=== PATIENT | male | born 2005 | race Two or more races ===

== ENCOUNTER 2024-09-30 03:35 | Emergency (ER) | payer MEDICAID, SELFPAY ==
[2024-09-30 03:36] VITALS: BMI 25.8
[2024-09-30 04:14] VITALS: BP 122/73; PULSE 89; RESP 18; TEMP 36.7; O2SAT 98
--- NOTE | 2024-09-30 04:19 | PD.EDRME ---
Rapid Medical Screening Exam RME Arrival date/time: 09/30/24 03:35 19-year-old male presents emergency department complaining of rectal bleeding and diffuse abdominal pain for several days. Chief Complaint: Abdominal Pain Time Seen by Provider: 09/30/24 04:16 Vital signs: Vital Signs Temperature 98.0 F 09/30/24 04:14 Pulse Rate 89 09/30/24 04:14 Respiratory Rate 18 09/30/24 04:14 Blood Pressure 122/73 09/30/24 04:14 Pulse Oximetry (%) 98 09/30/24 04:14 Oxygen Delivery Method Room Air 09/30/24 04:14 Vital signs reviewed by provider: Yes
[2024-09-30 05:27] LABS: Collection Type, Urine Clean Catch; Squamous Epithelial Cell,Urine 0 /hpf (0-5); WBC,Urine 0 /hpf (0-5)
[2024-09-30 06:09] LABS: Bilirubin,Urine Negative (Negative); Blood,Urine Negative (Negative); Clarity,Urine Clear (Clear/Hazy); Color,Urine Colorless (Lt Yel-Yel); Culture Indicated,Urine Not Indicated; Glucose, Urine Negative (Negative); Ketones,Urine Negative (Negative); Leukocyte Esterase,Urine Negative (Negative); Nitrite,Urine Negative (Negative); PH,Urine 6.5 (5.0-7.0); Protein,Urine Negative (Neg - Trace); RBC,Urine 1 /hpf (0-3); Specific Gravity,Urine 1.012 (1.001-1.035); Urobilinogen,Urine Negative mg/dL (0.0-1.0)
--- NOTE | 2024-09-30 06:36 | PD.EDABDPN ---
ED Abdominal Pain RME/HPI General Chief Complaint: Abdominal Pain Stated complaint: BLOOD IN STOOL/ABD PAIN X 1 DAY Time seen by provider: 09/30/24 04:16 Arrival date/time: 09/30/24 03:35 19-year-old male with no known medical history presents to the emergency room with a chief complaint of generalized abdominal 7 out of 10 pain and rectal bleeding x 2 days. Source: patient Mode of arrival: ambulatory Limitations: no limitations RME / HPI RME / HPI narrative: 09/30/24 03:35 19-year-old male presents emergency department complaining of rectal bleeding and diffuse abdominal pain for several days. Related Data Previous Rx's ?Medication ?Instructions ?Recorded albuterol sulfate 90 mcg/actuation 2 puff inhalation Q4HR PRN dyspnea 01/21/17 aerosol inhaler (ProAir HFA) #2 inhalations docusate sodium 100 mg capsule 100 mg PO BID #14 caps 09/30/24 (Colace) hydrocortisone acetate 25 mg 25 mg [place] BID #12 ea 09/30/24 rectal suppository (Anusol-HC) Allergies Allergy/AdvReac Type Severity Reaction Status Date / Time No Known Allergies Allergy Verified 09/30/24 03:38 Review of Systems Review of Systems Systems Reviewed: All systems reviewed, normal except as documented Constitutional Constitutional: Reports system reviewed and no additional complaints, except as documented, Denies fatigue, Denies fever(s), Denies headache(s) and Denies weakness Eyes Eyes: Reports system reviewed and no additional complaints, except as documented, Denies blurry vision and Denies change in vision ENT Ears, Nose, Mouth, and Throat: Reports system reviewed and no additional complaints, except as documented, Denies otalgia, Denies headache(s), Denies nasal congestion, Denies throat swelling and Denies vertigo Cardiovascular Cardiovascular: Reports system reviewed and no additional complaints, except as documented, Denies chest pain, Denies dyspnea and Denies dyspnea on exertion Respiratory Respiratory: Reports system reviewed and no additional complaints, except as documented, Denies chest congestion, Denies cough, Denies dyspnea, Denies dyspnea on exertion and Denies wheezing Gastrointestinal Gastrointestinal: Reports system reviewed and no additional complaints, except as documented, Denies abdominal pain, Reports bloating, Reports change in bowel habits, Reports change in stool character, Reports constipation, Reports cramping, Reports hematochezia, Reports loose stools, Denies nausea and Denies vomiting Genitourinary Genitourinary: Reports system reviewed and no additional complaints, except as documented, Denies dysuria and Denies hematuria Musculoskeletal Musculoskeletal: Reports system reviewed and no additional complaints, except as documented and Denies back pain Integumentary/Breasts Skin/Breast: Reports system reviewed and no additional complaints, except as documented and Denies wounds Neurologic Neurologic: Reports system reviewed and no additional complaints, except as documented, Denies confusion, Denies headache(s), Denies lack of coordination, Denies vertigo and Denies weakness Psychiatric Psychiatric: Reports system reviewed and no additional complaints, except as documented, Denies anxiety, Denies confusion, Denies depression, Denies paranoia, Denies suicidal ideation and Denies tactile hallucinations Endocrine Endocrine: Reports system reviewed and no additional complaints, except as documented and Denies fatigue Hematologic/Lymphatic Hematologic/Lymphatic: Reports system reviewed and no additional complaints, except as documented and Denies lymphadenopathy Allergic/Immunologic Allergic/Immunologic: Reports system reviewed and no additional complaints, except as documented, Denies throat swelling, Denies urticaria and Denies wheezing Past Medical History Social History SMOKING STATUS: Never smoker ED Exam General Limitations: Present no limitations General appearance: Present alert and in no apparent distress Head Head exam: Present atraumatic Eye Eye exam: Present normal appearance, PERRL and EOMI ENT ENT exam: Present normal exam, normal oropharynx and mucous membranes moist Neck Neck exam: Present normal inspection, full ROM and trachea midline Chest Chest inspection: Present normal inspection and symmetric chest wall rise Respiratory Respiratory exam: Present normal lung sounds bilaterally Cardiovascular Cardiovascular exam: Present regular rate, normal rhythm and normal heart sounds Abdominal Exam Abdominal exam: Present soft, tenderness and normal bowel sounds; Absent distention, guarding, rebound or rigidity Abdominal tenderness: Present RLQ, LLQ and mild; Absent RUQ, LUQ, epigastrium, suprapubic or diffuse Rectal Exam Rectal exam: Present normal inspection, normal rectal tone, heme (+) stool and tenderness Extremities Exam Extremities exam: Present normal inspection and full ROM Back Exam Back exam: Present normal inspection and full ROM Neurological Exam Neurological exam: Present alert, oriented X3 and CN II-XII intact Psychiatric Psychiatric exam: Present normal affect and normal mood Skin Skin exam: Present warm, dry, intact and normal color Course Quality Measures none Orders Category Date Time Status CBC Stat Lab 09/30/24 05:55 Completed CMP [Comprehensive Metabolic Panel] Stat Lab 09/30/24 05:55 Completed Drug Screen,Urine Stat Lab 09/30/24 04:33 Completed PT [Prothrombin Time with INR] Stat Lab 09/30/24 05:55 Completed PTT [Partial Thromboplastin Time] Stat Lab 09/30/24 05:55 Completed Urinalysis, C/S if Indicated Stat Lab 09/30/24 04:33 Completed Vital Signs Vital signs: Vital Signs Temperature 98.0 F 09/30/24 04:14 Pulse Rate 89 09/30/24 04:14 Respiratory Rate 18 09/30/24 04:14 Blood Pressure 122/73 09/30/24 04:14 Pulse Oximetry (%) 98 09/30/24 04:14 Oxygen Delivery Method Room Air 09/30/24 04:14 O2 saturation 98% within normal limits Abdominal Pain MDM MDM Narrative MDM Narrative:: 19-year-old male with no known medical history presents to the emergency room with a chief complaint of generalized abdominal 7 out of 10 pain and rectal bleeding x 2 days. Clinically the patient appears nontoxic and in no apparent distress. Physical examination during my reevaluation shows abdominal cramping with a 3 out of 10 pain. Patient states his pain has significantly decreased since waiting in the lobby. CBC and CMP were within normal limits hemoglobin and hematocrit were normal. Patient states that he is having rectal bleeding and showed me multiple pictures of the toilet bowl which show bright red blood. Patient states he is also having pain when straining and states he is having constipation and then having episodes of diarrhea. Patient denies any night sweats or loss of weight. Patient was educated that he needs to follow-up with his primary care provider and get a referral to a fluid power mechanic if the symptoms continue. Patient states the first episode he noticed was on September 24 and has been 5 days of intermittent bleeding. Patient was given medication for internal hemorrhoids as there is no evidence of any external hemorrhoids. Patient was discharged and educated return to the emergency room for any evidence of worsening signs or symptoms Patient data External records reviewed:: [facility] previous records Clinical information provided by:: patient Social determinants that could affect healthcare access:: none Patient has the following chronic illnesses:: No chronic illness How is presenting disease/condition affected by chronic disease/condition?: no chronic disease Evaluation data The following diagnostics were reviewed and interpreted by me:: lab results and radiology exam(s) Lab and/or radiology exams considered but not ordered:: Labs and radiology exams considered and ordered Interpretation Summary: N/A Medications / Prescriptions Medications or Prescriptions considered but not ordered:: Rx given Medication administrations:: Rx given Consultations Consultation(s) initiated? (list below): No Diagnosis Differential diagnosis abdominal pain: abdominal pain, constipation, diverticulitis, gastroenteritis and other (Hematochezia) Most likely diagnosis given after review of the tests above:: Hematochezia Admission Indicated Admission indicated?: not indicated Admission Request Was there a request for admission?: No Disposition Plan Disposition Plan: Discharge Discharge Attestation Discharge Attestation: The patient and all family members were given an opportunity to ask questions and understood the discharge instructions. Discharge instructions specifically effects, indications for sooner follow up or return to the emergency department, and the expected course of current diagnosis. Patient condition: Stable Discharge Plan Plan Patient Disposition: HOME (Self Care) Disposition Comment: Stable Prescriptions/Referrals Prescriptions/Med Rec: New hydrocortisone acetate [Anusol-HC] 25 mg suppository 25 mg MN BID Qty: 12 0RF docusate sodium [Colace] 100 mg capsule 100 mg PO BID Qty: 14 0RF No Action albuterol sulfate [ProAir HFA] 8.5 GM HFA aerosol inhaler 2 puff Inhalation Q4HR PRN (Reason: dyspnea) Qty: 2 0RF Rx Instructions: any albuterol ok; dispense with spacer Referrals: Julian Watson MD [Primary Care Provider] - In 1 week Problem List Clinical Impression: Hematochezia Patient/Caregiver Discharge Instructions Education Materials: Anatomy of the Digestive System Additional Instructions: Please follow-up with your primary care provider in the next 24 to 48 hours. Your blood work and urinalysis were completed and within normal limits If your symptoms continue you will need to follow-up with your primary care provider as a referral to a fluid power mechanic is warranted. I am sending you some medication to loosen your stool please take it if you are having hard bowel movements. The other medication is to help you with your symptoms and lessen the pain during bowel movements. For any evidence of worsening signs or symptoms please return to the emergency room immediately Print Language: Wolof Stand Alone Forms: Yani Award Info., Work/School Release, Patient Portal Info Letter PA/AUTOMOBILE SEAT COVER INSTALLER Supervising Physician PA/AUTOMOBILE SEAT COVER INSTALLER Supervising Physician: Dr. Miranda
[2024-09-30 06:51] LABS: Amphetamine/Methamp Scrn,U Negative (Negative); Barbiturate Screen,Urine Negative (Negative); Benzodiazepines Screen,Urine Negative (Negative); Benzoylecgonine Screen, Ur Negative (Negative); Fentanyl Screen,Urine Negative (Negative); Opiate Screen,Urine Negative (Negative); THC Screen,Urine Negative (Negative)
[2024-09-30 06:52] LABS: Basophils # (Auto) 0.1 Thou/mm3 (0.0-0.2); Basophils % (Auto) 1 % (0-2.5); Eosinophils # (Auto) 0.1 Thou/mm3 (0.0-0.5); Eosinophils % (Auto) 1 % (0-10); Hematocrit 45.2 % (41.0-53.0); Hemoglobin 15.4 g/dL (13.5-16.0); Immature Granulocytes % (Auto) 0 % (0-0); Immature Granulocytes Auto 0.01 Thou/mm3 (0.00-0.00); Lymphocytes # (Auto) 3.2 Thou/mm3 (1.0-4.8); Lymphocytes % (Auto) 56 % (10-50); Mean Corpuscular HGB Conc 34.1 g/dl (31.0-37.0); Mean Corpuscular Hemoglobin 29.9 pg (25.0-35.0); Mean Corpuscular Volume 88 fL (80-100); Monocytes # (Auto) 0.4 Thou/mm3 (0.0-0.8); Monocytes % (Auto) 7 % (0-12); Neutrophils % (Auto) 34 % (37-80); Nucleated Red Blood Cell % 0 /100 WBC (0); Platelet Count 190 Thou/mm3 (140-440); RDW Standard Deviation 41.7 fL (35.1-43.9); Red Blood Count 5.15 Miln/mm3 (4.50-5.90); White Blood Count 5.8 Thou/mm3 (4.5-11.0)
[2024-09-30 07:15] LABS: Partial Thromboplastin Time 31.3 Seconds (22.0-36.0); Prothrombin Time 10.8 Seconds (9.0-12.2)
[2024-09-30 07:45] LABS: Alanine Aminotransferase 22 U/L (10-49); Albumin, Serum 5.2 gm/dL (3.5-5.0); Albumin/Globulin Ratio 2.1 (1.2-2.2); Alkaline Phosphatase 81 U/L (46-116); Anion Gap 9 (7-16); Aspartate Amino Transferase 23 U/L (0-34); BUN/Creatinine Ratio 11 Ratio (12-20); Bilirubin,Total 0.4 mg/dL (0.3-1.2); Blood Urea Nitrogen 9 mg/dL (9-23); Calcium 10.5 mg/dL (8.3-10.6); Calcium (Corrected) 10.5 mg/dL (8.5-10.1); Carbon Dioxide 27.5 mMol/L (20.0-31.0); Chloride 104 mMol/L (98-107); Creatinine (Component) 0.8 mg/dL (0.6-1.3); Estimated Creatinine Clearance 137.7 mL/min (>60); Globulin 2.5 gm/dL (2.3-3.5); Glucose 95 mg/dL (74-106); Osmolality,Calculated 278 (275-295); Potassium 4.2 mMol/L (3.4-5.1); Sodium 140 mMol/L (136-145); Total Protein 7.7 gm/dL (5.7-8.2); eGFR > 60 See Note
== END 2024-09-30 08:12 | disposition home or self-care (01) ==
PROVIDERS: Emergency Provider Emergency Medicine; PCP Family Medicine
DX: K92.1 Melena (principal); R10.84 Generalized abdominal pain
CPT/HCPCS: 36415; 80053; 80307; 81001; 85025; 85610; 85730; 99283

== ENCOUNTER 2025-04-09 02:35 | Emergency (ER) | payer MEDICAID, SELFPAY ==
[2025-04-09 02:39] VITALS: BP 137/81; PULSE 114; RESP 19; TEMP 36.9; O2SAT 97; BMI 29.7
--- NOTE | 2025-04-09 02:46 | EDNOTE_ITS ---
ED Medical Clearance RME/HPI General Chief complaint: Medical Clearance Stated complaint: MEDICAL CLEARANCE Time Seen by Provider: 04/09/25 02:49 Arrival date/time: 04/09/25 02:35 RME / HPI RME / HPI Narrative: This section includes all my notes and documentations, including HPI, PE, and ED course. William Rodriguez MD HPI: 19yo male BIB [facility] here for medical clearance. Patient was tazed by PD. No falls or loss of consciousness. Patient does not have any medical complaints. No other complaints reported. ROS: All negative except as documented in HPI. Physical Exam: General: Alert and oriented. No acute distress when remaining still. Eyes: Conjunctivae and lids clear. ENT: No nasal congestion. Neck: Supple. Heart: RRR. Lungs: No respiratory distress. Good air movement. No rhonchi, wheezing, rales. Abdomen: Soft and nontender. Skin: Warm and dry. Taser dart embedded in anterior chest and sternum region. Multiple left forearm skin abrasions noted, varying size and shape Neuro: Alert and oriented X 3. At this point, diagnoses include multiple skin abrasions. Treatment here included wound care, Tdap, Bacitracin, and Augmentin. Based on my best medical judgment, made decision to medically cleared patient for group home and no further evaluation or treatment indicated at this time. Patient understands and agrees to the discharge instructions customized and printed, see below. Discharge Instructions from Dr. Rodriguez printed for you: 1. After evaluation, you are medically cleared for group home. 2. Wound care of your multiple skin abrasions (chest and left forearm) as instructed in the attached handout to prevent severe infection. 3. See a private doctor on 04/13/2025 or whenever you are released for recheck. 4. Seek immediate medical care with any concerns. William Rodriguez MD Related Information Previous Rx's ?Medication ?Instructions ?Recorded albuterol sulfate 90 mcg/actuation 2 puff inhalation Q 4HR PRN dyspnea 01/21/17 aerosol inhaler (ProAir HFA) #2 inhalations docusate sodium 100 mg capsule 100 mg PO BID #14 caps 09/30/24 (Colace) hydrocortisone acetate 25 mg 25 mg [place] BID #12 ea 09/30 rectal suppository (Anusol-HC) Allergies Allergy/AdvReac Type Severity Reaction Status Date / Time No Known Allergies Allergy Verified 09/30/24 03:38 Review of Systems Review of Systems Systems Reviewed: All systems reviewed, normal except as documented Past Medical History Social History SMOKING STATUS: Never smoker ED Exam Narrative Physical exam: As noted in HPI. Course Quality Measures none Orders Category Date Time Status Wound Care [Wound Care] NOW Care 04/09/25 02:50 Completed Amoxicillin/Pot Clav 875 [Augmentin 875] Med 04/09/25 02:49 Discontinued 1 tab PO X1 ONE Bacitracin Oint pkt Med 04/09/25 02:49 Discontinued 1 gm TOP X1 ONE TET,DIP/PERT AC (Adult)-Tdap [Boostrix Adult (Tdap) Med 04/09/25 02:49 Discontinued Vacc] 0.5 ml IMI .ONCE ONE Vital Signs Vital signs: Vital Signs Temperature 98.4 F 04/09/25 02:39 Pulse Rate 114 H 04/09/25 02:39 Respiratory Rate 19 04/09/25 02:39 Blood Pressure 137/81 H 04/09/25 02:39 Pulse Oximetry (%) 97 04/09/25 02:39 Oxygen Delivery Method Room Air 04/09/25 02:39 Medical Clearance MDM Narrative MDM Narrative:: 19yo male BIB [facility] here for medical clearance. Patient was tazed by PD. No falls or loss of consciousness. Patient does not have any medical complaints. No other complaints reported. Patient data External records reviewed:: [facility] previous records (Per chart review, patient has no relevant previous ED visits.) Clinical information provided by:: patient and law enforcement Social determinants that could affect healthcare access:: none Patient has the following chronic illnesses:: none How is presenting disease/condition affected by chronic disease/condition?: no chronic disease Evaluation data The following diagnostics were reviewed and interpreted by me:: other (specify) (none) Lab and/or radiology exams considered but not ordered:: none Interpretation Summary: none Medications / Prescriptions Medications or Prescriptions considered but not ordered:: none Medication administrations:: Medication Administration History Discontinued Medications Amoxicillin/Clavulanate Potassium (Amoxicillin/Pot Clav 875 Tablet) 1 tab PO X1 ONE Stop: 04/09/25 02:50 Last Admin: 04/09/25 03:15 Dose: 1 tab Documented By: BD Bacitracin (Bacitracin Oint 1 Gm Packet) 1 gm TOP X1 ONE Stop: 04/09/25 02:50 Last Admin: 04/09/25 03:14 Dose: 1 gm Documented By: BD Diphtheria/Tetanus/Acell Pertussis (Diphth,Pertuss(Acell),Tet Vac 0.5 Ml Syr- Adult) 0.5 ml IMi .ONCE ONE Stop: 04/09/25 02:50 Last Admin: 04/09/25 03:14 Dose: 0.5 ml Documented By: BD Tdap, Bacitracin, Augmentin Consultations Consultation(s) initiated? (list below): No Diagnosis Medical Clearance Differential Diagnosis: other (Abrasions, lacerations) Most likely diagnosis given after review of the tests above:: Medical clearance for incarceration, Multiple abrasions Admission Indicated Admission indicated?: not indicated Explain why admission is indicated or not indicated:: With significant improvement and no condition needing emergent intervention, there was no indication for admission. Admission Request Was there a request for admission?: No Disposition Plan Disposition Plan: Discharge Discharge Attestation Discharge Attestation: The patient and all family members were given an opportunity to ask questions and understood the discharge instructions. Discharge instructions specifically effects, indications for sooner follow up or return to the emergency department, and the expected course of current diagnosis. Patient condition: Stable Discharge Plan Plan Patient Disposition: Snf/Court/Law Prescriptions/Referrals Prescriptions/Med Rec: No Action albuterol sulfate [ProAir HFA] 8.5 GM HFA aerosol inhaler 2 puff Inhalation Q4HR PRN (Reason: dyspnea) Qty: 2 0RF Rx Instructions: any albuterol ok; dispense with spacer hydrocortisone acetate [Anusol-HC] 25 mg suppository 25 mg CA BID Qty: 12 0RF docusate sodium [Colace] 100 mg capsule 100 mg PO BID Qty: 14 0RF Problem List Clinical Impression: Medical clearance for incarceration, Multiple abrasions Patient/Caregiver Discharge Instructions Discharge Activity: activity as tolerated Education Materials: ED Abrasions Additional Instructions: Discharge Instructions from Dr. Rodriguez printed for you: 1. After evaluation, you are medically cleared for group home. 2. Wound care of your multiple skin abrasions (chest and left forearm) as instructed in the attached handout to prevent severe infection. 3. See a private doctor on 04/13/2025 or whenever you are released for recheck. 4. Seek immediate medical care with any concerns. Print Language: Luxembourgish
[2025-04-09] MEDS: DIPHTH,PERTUSS(ACELL),TET VAC 0.5 ML SYR- ADULT IMi (03:14)
[2025-04-09] MEDS: BACITRACIN OINT 1 GM PACKET TOP (03:14)
[2025-04-09] MEDS: AMOXICILLIN/POT CLAV 875 TABLET 1 TAB PO (03:15)
== END 2025-04-09 03:22 ==
LOC: SERX 03:09
PROVIDERS: Emergency Provider Emergency Medicine
DX: Z02.89 Encounter for other administrative examinations (principal); S50.812A Abrasion of left forearm, initial encounter; X58.XXXA Exposure to other specified factors, initial encounter; Z23 Encounter for immunization
CPT/HCPCS: 90471; 90715; 99284; A9270

== ENCOUNTER 2025-04-09 04:57 | Emergency (ER) | payer MEDICAID, SELFPAY ==
--- NOTE | 2025-04-09 05:25 | EKG_ITS ---
[facility] Test Date: 2025-04-09 Pat Name: ANGY RUSSELL Department: Room: - Gender: Male Fashion Model: : 2005 Requested By: William Phillips Order Number: [id number] Reading MD: William Phillips Measurements Intervals [place] Rate: 109 P: 66 SD: 156 QRS: -12 QRSD: 100 T: 36 QT: 299 QTc: 404 Interpretive Statements SINUS TACHYCARDIA INCOMPLETE RIGHT BUNDLE BRANCH BLOCK [90+ ms QRS DURATION, TERMINAL R IN V1/V2, 40+ ms S IN I/aVL/V4/V5/V6] MINIMAL VOLTAGE CRITERIA FOR LVH, CONSIDER NORMAL VARIANT [MEETS CRITERIA IN ONE OF: R(aVL), S(V1), R(V5), R(V5/V6)+S(V1)] EARLY REPOLARIZATION [ST ELEVATION WITH NORMALLY INFLECTED T-WAVE] ABNORMAL RHYTHM ECG Compared to ECG 03/03/2023 01:30:15 ST (T wave) deviation no longer present /store/S0/[id number]/ecg/[id number].pdf
[2025-04-09 05:28] VITALS: BMI 29.4
[2025-04-09 05:35] VITALS: BP 130/78; PULSE 109; PULSE 117; RESP 19; TEMP 36.7; O2SAT 98
[2025-04-09 05:43] LABS: Basophils # (Auto) 0.1 Thou/mm3 (0.0-0.2); Basophils % (Auto) 1 % (0-2.5); Eosinophils # (Auto) 0.0 Thou/mm3 (0.0-0.5); Eosinophils % (Auto) 0 % (0-10); Hematocrit 43.2 % (41.0-53.0); Hemoglobin 15.1 g/dL (13.5-16.0); Immature Granulocytes Auto 0.02 Thou/mm3 (0.00-0.00); Lymphocytes # (Auto) 2.3 Thou/mm3 (1.0-4.8); Lymphocytes % (Auto) 27 % (10-50); Mean Corpuscular HGB Conc 35.0 g/dl (31.0-37.0); Mean Corpuscular Hemoglobin 30.0 pg (25.0-35.0); Mean Corpuscular Volume 86 fL (80-100); Monocytes # (Auto) 0.5 Thou/mm3 (0.0-0.8); Monocytes % (Auto) 6 % (0-12); Neutrophils # (Auto) 5.8 Thou/mm3 (1.8-7.7); Neutrophils % (Auto) 67 % (37-80); Nucleated Red Blood Cell # 0.00 Thou/mm3 (0.00-0.00); Nucleated Red Blood Cell % 0 /100 WBC (0); Platelet Count 203 Thou/mm3 (140-440); RDW Standard Deviation 41.7 fL (35.1-43.9); Red Blood Count 5.03 Miln/mm3 (4.50-5.90); White Blood Count 8.6 Thou/mm3 (4.5-11.0)
[2025-04-09 06:01] LABS: Anion Gap 8 (7-16); BUN/Creatinine Ratio 14 Ratio (12-20); Blood Urea Nitrogen 14 mg/dL (9-23); Calcium 9.7 mg/dL (8.3-10.6); Carbon Dioxide 25.5 mMol/L (20.0-31.0); Chloride 108 mMol/L (98-107); Creatinine (Component) 1.0 mg/dL (0.6-1.3); Estimated Creatinine Clearance 123.0 mL/min (>60); Glucose 108 mg/dL (74-106); Magnesium 1.8 mg/dL (1.6-2.6); Osmolality,Calculated 282 (275-295); Potassium 4.3 mMol/L (3.4-5.1); Sodium 141 mMol/L (136-145); Troponin I 0.030 ng/mL (0.0-0.045); eGFR > 60 See Note
[2025-04-09] MEDS: MAGNESIUM OXIDE 400 MG TABLET PO (06:26)
--- NOTE | 2025-04-09 06:26 | EDNOTE_ITS ---
ED General RME/HPI General Chief complaint: Medical Clearance Stated complaint: MEDICAL CLEARANCE Arrival date/time: 04/09/25 04:57 RME / HPI RME / HPI narrative: See [facility] Related Data Previous Rx's ?Medication ?Instructions ?Recorded albuterol sulfate 90 mcg/actuation 2 puff inhalation Q 4HR PRN dyspnea 01/21/17 aerosol inhaler (ProAir HFA) #2 inhalations docusate sodium 100 mg capsule 100 mg PO BID #14 caps 09/30/24 (Colace) hydrocortisone acetate 25 mg 25 mg RI BID #12 ea 09/30 rectal suppository (Anusol-HC) Allergies Allergy/AdvReac Type Severity Reaction Status Date / Time No Known Allergies Allergy Verified 09/30/24 03:38 Review of Systems Review of Systems Systems Reviewed: All systems reviewed, normal except as documented ED Exam Narrative Physical exam: Physical Exam GENERAL: NAD, AAOx3 HEENT: Moist mucosa. Eyes open, symmetrical, & clear CARDIO: Heart RRR, no obvious murmurs, tachycardia PULM: No noted coughing/dyspnea CTA B/L, no R/W/R GI: Abdomen soft, nondistended, no pain on palpation. BSx4 SKIN/MSK/EXT: No wounds/rashes/edema/amputations, no pain on palpation. Pedal pulses present B/L NEURO: AAOx3, no focal neuro deficits, able to move all 4 extremities Course Course Course Narrative: See [facility] Quality Measures none Orders Category Date Time Status EKG (ED ONLY) *Do not use* NOW Care 04/09/25 05:27 Completed EKG (ED Only) Stat Exams 04/09/25 05:25 Draft BMP [Basic Metabolic Panel] Stat Lab 04/09/25 05:36 Completed CBC Stat Lab 04/09/25 05:36 Completed Magnesium Stat Lab 04/09/25 05:36 Completed Troponin I Stat Lab 04/09/25 05:36 Completed Magnesium Oxide [Mag-Ox 400] Med 04/09/25 06:17 Discontinued 400 mg PO X1 ONE Vital Signs Vital signs: Vital Signs Temperature 98.1 F 04/09/25 05:35 Pulse Rate 109 H 04/09/25 05:35 Respiratory Rate 19 04/09/25 05:35 Blood Pressure 130/78 04/09/25 05:35 Pulse Oximetry (%) 98 04/09/25 05:35 Oxygen Delivery Method Room Air 04/09/25 05:35 Discharge Plan Plan Patient Disposition: [facility]/Court/Law Prescriptions/Referrals Prescriptions/Med Rec: No Action albuterol sulfate [ProAir HFA] 8.5 GM HFA aerosol inhaler 2 puff Inhalation Q4HR PRN (Reason: dyspnea) Qty: 2 0RF Rx Instructions: any albuterol ok; dispense with spacer hydrocortisone acetate [Anusol-HC] 25 mg suppository 25 mg RI BID Qty: 12 0RF docusate sodium [Colace] 100 mg capsule 100 mg PO BID Qty: 14 0RF Referrals: No Primary/Family,Physician [Primary Care Provider] - In 1 week Problem List Clinical Impression: Tachycardia Patient/Caregiver Discharge Instructions Additional Instructions: Follow-up with your primary care physician within 1 week of discharge Your workup here in the ER including EKG, CBC, CMP are all within normal limits, no signs of arrhythmia at this time and patient has no symptoms. Should symptoms recur or worsen patient is instructed to return to the ER. Print Language: Barbadian MDM Narrative MDM hospital course: 19-year-old male who [facility] after being cleared from this institution due to tachycardia. Patient was tazed by PD. No falls or loss of consciousness. Patient does not have any medical complaints. No other complaints reported. EKG and labs reviewed patient has no further complaints, magnesium oxide given for electrolyte optimization Patient at this time is cleared for [facility]. Can be safely discharged to [facility]. An d instructed that should any symptoms recur or worsen patient is instructed to return to the ER. Lab Interpretation Labs: interpreted by me Lab(s) interpretation(s): CBC unremarkable, CMP unremarkable, troponins negative Medication Administration(s) Medication Administration History Discontinued Medications Magnesium Oxide (Magnesium Oxide 400 Mg Tablet) 400 mg PO X1 ONE Stop: 04/09/25 06:18 Last Admin: 04/09/25 06:26 Dose: 400 mg See above Diagnosis Differential diagnosis: Sinus tachycardia, atrial fibrillation, atrial flutter Most likely dx, and/or detailed dx discussion: Sinus tachycardia Dispositon Disposition: Incarceration/CPS
[2025-04-09 06:41] VITALS: BP 137/65; PULSE 104; RESP 20; O2SAT 99
== END 2025-04-09 06:52 ==
PROVIDERS: Emergency Medicine; Emergency Provider Family Medicine
DX: R00.0 Tachycardia, unspecified (principal)
CPT/HCPCS: 36415; 80048; 83735; 84484; 85025; 93005; 99283; A9270